=== PATIENT | female | born 1950 | race Caucasian/White ===

== ENCOUNTER 2022-01-05 07:30 | Outpatient (RCR) | payer MEDICARE, OTHER, SELFPAY | END 2022-01-05 09:40 | disposition home or self-care (01) | PROVIDERS: PCP Family Medicine; Visit Provider Orthopaedic Surgery Orthopaedic Surgery of the Spine | DX: M48.061 Spinal stenosis, lumbar region without neurogenic claudication (principal); Z51.89 Encounter for other specified aftercare | CPT/HCPCS: 97140 ==

== ENCOUNTER 2022-12-12 13:00 | Outpatient (RCR) | payer MEDICARE, OTHER, SELFPAY | END 2023-04-11 23:59 | disposition home or self-care (01) | PROVIDERS: PCP Family Medicine; Visit Provider Family Medicine | DX: S89.91XD Unspecified injury of right lower leg, subsequent encounter (principal); M17.11 Unilateral primary osteoarthritis, right knee; R53.1 Weakness; R29.3 Abnormal posture; M25.552 Pain in left hip; M25.561 Pain in right knee; M67.853 Other specified disorders of tendon, right hip; G57.00 Lesion of sciatic nerve, unspecified lower limb; Z51.89 Encounter for other specified aftercare | CPT/HCPCS: 97110; 97161 ==

== ENCOUNTER 2022-12-20 13:45 | Outpatient (RCR) | payer MEDICARE, OTHER, SELFPAY | END 2023-03-21 10:18 | disposition home or self-care (01) | PROVIDERS: PCP Family Medicine; Visit Provider Orthopaedic Surgery Orthopaedic Surgery of the Spine | DX: S89.91XD Unspecified injury of right lower leg, subsequent encounter (principal); Z51.89 Encounter for other specified aftercare | CPT/HCPCS: 97110; 97161 ==

== ENCOUNTER 2023-04-09 07:36 | Outpatient (CLI) | payer MEDICARE, OTHER, SELFPAY ==
--- NOTE | 2023-04-09 09:29 | W.ANESCHARGE ---
Anesthesia Charges Start Date/Time Anesthesia Start Date: 04/09/23 Anesthesia Start Time: 08:57 Stop Date/Time Anesthesia Stop Date: 04/09/23 Anesthesia Stop Time: 09:27
== END 2023-04-09 07:37 | disposition home or self-care (01) ==
LOC: OP CLINIC 07:37
PROVIDERS: PCP Family Medicine; Visit Provider Internal Medicine Gastroenterology
DX: K31.7 Polyp of stomach and duodenum (principal); Q43.8 Other specified congenital malformations of intestine; C18.9 Malignant neoplasm of colon, unspecified; Z15.09 Genetic susceptibility to other malignant neoplasm; Z86.010 Personal history of colon polyps
CPT/HCPCS: 00813; 43239; 45378; 88305; J2704

== ENCOUNTER 2024-08-19 07:30 | Outpatient (RCR) | payer MEDICARE, OTHER, SELFPAY | END 2024-11-24 10:45 | disposition home or self-care (01) | PROVIDERS: PCP Family Medicine; Visit Provider Family Medicine | DX: M70.62 Trochanteric bursitis, left hip (principal); M25.552 Pain in left hip; Z51.89 Encounter for other specified aftercare | CPT/HCPCS: 97110; 97140; 97162 ==

== ENCOUNTER 2024-08-26 07:26 | Outpatient (CLI) | payer MEDICARE, OTHER, SELFPAY | END 2024-08-26 07:27 | disposition home or self-care (01) | LOC: INJ CL 07:27 | PROVIDERS: PCP Family Medicine; Visit Provider Family Medicine | DX: M16.12 Unilateral primary osteoarthritis, left hip (principal); M25.552 Pain in left hip | CPT/HCPCS: 20610; 77002; J0702; Q9966 ==

== ENCOUNTER 2024-09-22 08:03 | Day surgery (SDC) | payer MEDICARE, OTHER, SELFPAY ==
[2024-09-22] VITALS (13 sets, daily range): BP systolic 111–146; BP diastolic 59–94; PULSE 53–65; RESP 12–18; TEMP 36.3–36.9; O2SAT 92–98; BMI 31.8
[2024-09-22] MEDS: SODIUM CHLORIDE 0.9 % (FLUSH) 10 ML SYRINGE IVF (08:38)
[2024-09-22] MEDS: LACTATED RINGERS 1000 ML 1,000 ML 100 ML IV (08:38)
[2024-09-22] MEDS: MIDAZOLAM HCL 1 MG/ML inj IVP (08:53)
[2024-09-22] MEDS: fentaNYL 100 MCG/2 ML inj IVP (08:53)
[2024-09-22] MEDS: CEFAZOLIN 1 GM inj IVP (09:05)
--- NOTE | 2024-09-22 09:14 | SUR.PREOP ---
TIME?OUT:?0853 PT/RN/MDA?VERIFICATION?OF?SURGICAL?SITE,?PROCEDURE,?AND?CONSENT OBTAINED?PRIOR?TO?INVASIVE?PROCEDURE.
--- NOTE | 2024-09-22 09:20 | CRLHL7_ITS ---
For Patients: As a result of the Century Cures Act, medical imaging exams and procedure reports are released immediately into your electronic medical record. You may view this report before your referring provider. If you have questions, please contact your health care provider. Indication: talonavicular joint fusion Technique: Four fluoroscopic images of right ankle. Fluoroscopic time 29.9 seconds. IMPRESSION: Fluoroscopic guidance for talonavicular fusion. Dictated by Mahin Whitney MD @ 09/22/2024 11:17:50 AM (Electronically Signed)
[2024-09-22] MEDS: BUPIVACAINE 0.25% 30 ML INJECTION (11:00)
--- NOTE | 2024-09-22 11:22 | W.PM.PODPROC ---
Date of Procedure: 09/22/24 Surgeon: Denis Corona DPM Pre-op Diagnosis: DJD talonavicular joint right Post-op Diagnosis: DJD talonavicular joint right Type of Procedure: right talonavicular joint fusion Indications: patient is had significant pain due to severe arthritic changes to the talonavicular joint right foot. She has elected surgical care. Reviewed the procedure, recovery, expectation potential complications. These include but are not limited to: Poor wound healing, infection, under correction, nonunion, malunion, delayed union, hardware irritation or failure, nerve injury, deep venous thrombosis, pulmonary embolism possible . She understands risks and written consent was obtained. Site marked. Procedure Description: Patient brought the operating room placed supine position on operating table the time IV sedation was initiated. She had a preoperative popliteal and adductor block by Anesthesia. She was prepped and draped in a sterile fashion. Standard time-out protocol followed. The right limb was exsanguinated the tourniquet inflated. Patient has significant amount of restless leg symptoms and was not able to remain still and so she was placed under general anesthesia. Additional 20 mL of 0.25% Marcaine was injected along the incision site. Dorsal medial Linear incision made over the talonavicular joint and deepened through the skin subcutaneous tissues. All neurovascular structures either retracted or cauterized. Joint capsule was identified and incised. Capsular tissues reflected away from the talonavicular joint. Extensive degenerative changes noted to the joint. Joint distractor applied and the joint inspected. There was no visible remaining cartilage. Subchondral bone was removed with a osteotome and curette. Opposing fusion surfaces were fenestrated with a drill and then fish-scaled with an osteotome. Augment bone graft was then placed the fusion site. Talonavicular joint was held in anatomic alignment and a guide pin was placed in the navicular tuberosity and advanced into the talar head and neck. C-arm confirmed position. 5.0 mm cannulated headless screw was inserted using standard technique. Excellent compression noted across the fusion site. 20 mm x 20 mm staple was then applied on the dorsal medial aspect of the fusion site and a 25 by 20 mm staple applied on the dorsal surface of the fusion site. C-arm confirmed excellent position. There was a small void in the fusion on the plantar medial aspect this was packed with 1 mL of DBM. Wound was irrigated normal sterile saline. Joint capsule and the fascia repaired with 3-0 Vicryl. Subcutaneous tissues reapproximated with 4-0 Monocryl skin closed with 4-0 Prolene. Tourniquet released and normal capillary fill time returned all digits. Sterile dressings applied and a well-padded [id number] plaster splint applied. She was transferred from OR to PACU vital signs stable vascular status intact to the right lower extremity. She was given both written and verbal postop instructions. She is nonweightbearing. She could oxycodone for pain. She will follow up with clinic in 2 days. Anesthesia: GETA, regional and local Hemostasis: ankle Estimated blood loss (mL): 5 Implants: [place] 5.0 cannulated headless screw x1, [place] 20 mm x 20 mm staple x1, 25 mm x 20 mm staple x1, augment bone graft, DBM 1 mL bone graft Specimens: none sent Disposition: PACU
--- NOTE | 2024-09-22 11:32 | P.NB_ITS ---
Nerve Block Nerve Block Time Seen by Provider: 09:00 Date Seen: 09/22/24 Type of block requested by surgeon for post-operative analgesia: popliteal Side: right Time out performed: Yes Verification of patient name: Yes Verification of date of : Yes Site marking: site marked Name of person performing procedure: Khai Continuous monitoring Was continuous monitoring of O2 sat, B/P, cushion spring assembler, recorded every 15 minutes?: Yes Procedure Checklist: sterile prep, needles and gloves Ultrasound guided. Images saved: Yes Medications given in 5ml increments after negative aspiration: Marcaine %: 0.25 mL: 15 Needle gauge: 20 and Exparel mL: 5 Patient tolerated procedure well: Yes Additional comments: Needle noted adjacent to nerve Block Charges Block Charge (with Pro Fee): Sciatic Nerve Use of Ultrasound Machine for Block: Yes- US Guidance/pain block
--- NOTE | 2024-09-22 11:33 | P.NB_ITS ---
Nerve Block Nerve Block Time Seen by Provider: 09:00 Date Seen: 09/22/24 Type of block requested by surgeon for post-operative analgesia: adductor canal Side: right Time out performed: Yes Verification of patient name: Yes Verification of date of : Yes Site marking: site marked Name of person performing procedure: Khai Continuous monitoring Was continuous monitoring of O2 sat, B/P, early childhood specialist, recorded every 15 minutes?: Yes Procedure Checklist: sterile prep, needles and gloves Ultrasound guided. Images saved: Yes Medications given in 5ml increments after negative aspiration: Marcaine %: 0.25 mL: 15 Needle gauge: 20 and Exparel mL: 5 Patient tolerated procedure well: Yes Block Charges Block Charge (with Pro Fee): Femoral Nerve Use of Ultrasound Machine for Block: Yes- US Guidance/pain block
--- NOTE | 2024-09-22 11:33 | P.ANES_ITS ---
Anesthesia Charges Start Date/Time Anesthesia Start Date: 09/22/24 Anesthesia Start Time: 09:04 Stop Date/Time Anesthesia Stop Date: 09/22/24 Anesthesia Stop Time: 11:30 Coding CPT Codes CPT Codes: ANESTH LOWER LEG BONE SURG - 76037 ([id number]) P2 - PATIENT W/MILD SYST DISEASE, QK - TECTONOPHYSICIST 2-4 CNCRNT ANES PROC, QX - INTERN RETAIL SVC W/ MD MED DIRECTION
--- NOTE | 2024-09-22 11:33 | W.ANESCHARGE ---
Anesthesia Charges Start Date/Time Anesthesia Start Date: 09/22/24 Anesthesia Start Time: 09:04 Stop Date/Time Anesthesia Stop Date: 09/22/24 Anesthesia Stop Time: 11:30 Coding CPT Codes CPT Codes: ANESTH LOWER LEG BONE SURG - 59967 ([id number]) P2 - PATIENT W/MILD SYST DISEASE, QK - AIRLINE PILOT 2-4 CNCRNT ANES PROC, QX - CASING WRINGER OPERATOR SVC W/ MD MED DIRECTION
--- NOTE | 2024-09-22 11:36 | P.ANES_ITS ---
Anesthesia Charges Start Date/Time Anesthesia Start Date: 09/22/24 Anesthesia Start Time: 09:04 Stop Date/Time Anesthesia Stop Date: 09/22/24 Anesthesia Stop Time: 11:30 Summary Extremes of Age - Over 70 or under 1: MDA Coding CPT Codes CPT Codes: ANESTH LOWER LEG BONE SURG - 78249 ([id number]) QK - PUBLIC HEALTH PROGRAM MANAGER 2-4 CNCRNT ANES PROC, QX - ELECTRICAL DESIGN TECHNOLOGIST SVC W/ MD MED DIRECTION, P2 - PATIENT W/MILD SYST DISEASE Additional Codes: Summary - Extremes of Age - Over 70 or under 1: MDA ([id number])
[2024-09-22] MEDS: MEPERIDINE 25 MG/ML INJ 12.5 MG IVP (11:38)
--- NOTE | 2024-09-22 12:04 | SUR.PHASEI ---
patient met discharge criteria per anesthesia
== END 2024-09-22 13:20 | disposition home or self-care (01) ==
LOC: OR 08:06
PROVIDERS: PCP Family Medicine; Visit Provider Podiatrist
PROC: (CPT 28740; principal; 2024-09-22 10:00)
DX: M19.071 Primary osteoarthritis, right ankle and foot (principal); G89.18 Other acute postprocedural pain
CPT/HCPCS: 28740; 01480; 64445; 64447; 73620; 76000; 76942; 99100; C1713; J0665; J0666; J0690; J1100; J2175; J2250; J2405; J2704; J3010; J3490; J7120

== ENCOUNTER 2025-02-20 10:45 | Outpatient (RCR) | payer MEDICARE, OTHER, SELFPAY | END 2025-04-30 09:57 | disposition home or self-care (01) | PROVIDERS: PCP Family Medicine; Visit Provider Family Medicine | DX: Z48.89 Encounter for other specified surgical aftercare (principal); M75.81 Other shoulder lesions, right shoulder; M19.071 Primary osteoarthritis, right ankle and foot; Z51.89 Encounter for other specified aftercare | CPT/HCPCS: 97110; 97112; 97140; 97162 ==